=== PATIENT | female | born 1960 | race African-American/Black ===

== ENCOUNTER 2016-12-05 20:40 | Emergency (ER) | payer OTHER ==
[~2016-12-05] VITALS: Ht 162.6 cm; Wt 116.3 kg
[2016-12-05] MEDS ORDERED: CELE1CAP4 PO (20:59)
[2016-12-05] MEDS ORDERED: LISINOPRIL-HCTZ PO (20:59)
[2016-12-05] MEDS ORDERED: NISO20TA PO (20:59)
[2016-12-05] MEDS ORDERED: ASPI81TA18 PO (20:59)
[2016-12-05 21:36] LABS: BASO % 0.6 % (0.0-1.0); EOS # 0.2 K/mm3 (0.0-0.50); EOS % 1.9 % (0.0-3.0); LARGE UNSTAINED CELL # 0.2 K/mm3 (0.0-0.4); LARGE UNSTAINED CELL % 2.5 % (0.0-4.0); LYMPH # 2.9 K/mm3 (1.5-4.5); LYMPH % 34.8 % (24.0-44.0); MEAN CORPUSCULAR HEMOGLOBIN 28.4 pg (27.0-33.0); MEAN CORPUSCULAR HGB CONC 32.9 g/dl (32.0-36.5); MEAN CORPUSCULAR VOLUME 86.4 fl (80.0-96.0); MONO # 0.6 K/mm3 (0.0-0.8); MONO % 7.3 % (0.0-5.0); NEUTROPHILS # 4.1 K/mm3 (1.8-7.7); NEUTROPHILS % 52.8 % (36.0-66.0); PLATELET COUNT, AUTOMATED 304 k/mm3 (150-450); RED CELL DISTRIBUTION WIDTH 13.3 % (11.5-14.5); WHITE BLOOD COUNT 7.7 K/mm3 (4.0-10.0)
[2016-12-05 22:03] LABS: ANION GAP 6 MEQ/L (8-16); BLOOD UREA NITROGEN 13 MG/DL (7-18); CALCIUM LEVEL 9.4 MG/DL (8.5-10.1); CARBON DIOXIDE LEVEL 29 MEQ/L (21-32); CHLORIDE LEVEL 104 MEQ/L (98-107); CREATININE FOR GFR 0.99 MG/DL (0.55-1.02); GLOMERULAR FILTRATION RATE > 60.0 (>51); GLUCOSE, FASTING 131 MG/DL (70-105); POTASSIUM SERUM 3.9 MEQ/L (3.5-5.1); SODIUM LEVEL 139 MEQ/L (136-145)
[2016-12-06] MEDS ORDERED: METAL LOCK LOOP XX ONE (01:59)
[2016-12-06 03:28] VITALS: BP 143/74
--- NOTE | 2016-12-06 14:23 | REP ---
CHEST, TWO VIEWS: There is no evidence of acute infiltrate. No pleural effusion is seen. The heart is normal in size. The mediastinal silhouette is unremarkable. The visualized osseous structures are intact. IMPRESSION: No acute pulmonary disease. Signed by Reece Yu MD 12/06/2016 03:22 P
--- NOTE | 2016-12-06 20:05 | ECGEPIP ---
Stationary ECG Study [facility] - ED Test Date: 2016-12-06 Pat Name: JUVENAL DESIR Department: Room: - Gender: F Manager Analysis: barbara : 1960 Requested By: ANDREI White Order Number: [id number] Reading MD: Beronica Fox Measurements Intervals [place] Rate: 94 P: 23 OK: 172 QRS: -35 QRSD: 78 T: 16 QT: 287 QTc: 360 Interpretive Statements SINUS RHYTHM MARKED LEFT AXIS DEVIATION VOLTAGE CRITERIA FOR LVH NONSPECIFIC T-WAVE ABNORMALITY NO PRIOR FOR COMPARISON Electronically Signed On 12-06-2016 20:05:43 EDT by Beronica Fox
--- NOTE | 2016-12-08 07:56 | ECGEPIP ---
Stationary ECG Study [facility] - ED Test Date: 2016-12-05 Pat Name: JUVENLA DESIR Department: Room: - Gender: F Last Greaser: ChavarriaB: 1960 Requested By: ANDREI White Order Number: [id number] Reading MD: Gamal Orozco Measurements Intervals [place] Rate: 93 P: 32 AL: 169 QRS: -36 QRSD: 84 T: 19 QT: 366 QTc: 457 Interpretive Statements SINUS RHYTHM LEFT AXIS DEVIATION PATTERN CONSISTENT WITH PULMONARY DISEASE VOLTAGE CRITERIA FOR LVH NO PRIORS Electronically Signed On 12-08-2016 7:56:02 EDT by Gamal Orozco
== END 2016-12-06 03:40 | disposition home or self-care (01) ==
LOC: M ED 20:40
DX: R07.89 Other chest pain (principal); I10 Essential (primary) hypertension; M19.90 Unspecified osteoarthritis, unspecified site; F17.200 Nicotine dependence, unspecified, uncomplicated; Z85.41 Personal history of malignant neoplasm of cervix uteri; Z79.82 Long term (current) use of aspirin; Z79.1 Long term (current) use of non-steroidal anti-inflammatories (NSAID); Z79.899 Other long term (current) drug therapy

== ENCOUNTER → 2017-01-27 | Outpatient (CLI) | payer OTHER ==
[~2017-01-27] MED LIST: ASPI81TA18 PO; CELE1CAP4 PO; LISINOPRIL-HCTZ PO; NISO20TA PO
--- NOTE | 2017-01-27 08:49 | REPMRS ---
Patient History The patient states she had a clinical breast exam in June 2016. Patient is postmenopausal and has history of endometrial cancer at age 35. Family history of breast cancer in sister at age 51, unknown cancer in brother at age 49, and prostate cancer in maternal uncle at age 50 or over. Took hormonal contraceptives for 20 years. Digital Mammo Screening Bilat: January 27, 2017 - Exam #: [id number] Bilateral CC and MLO view(s) were taken. Technologist: Vicky Blackman, Technologist Prior study comparison: July 25, 2014, digital bilateral screening mammo, performed at [facility]. January 20, 2013, bilateral bilat screen digital mammo, performed at [facility] ([facility]). February 27, 2011, bilateral bilat screen digital mammo, performed at [facility] ([facility]). FINDINGS: There are scattered fibroglandular densities. There has been no change in the appearance of the mammogram from the prior studies. There is a mild amount of scattered fibroglandular density which is fairly symmetric. There is no interval development of dominant mass, architectural distortion, or clustered microcalcification suggestive of malignancy. ASSESSMENT: BI-RADS/ACR category 1 mammogram. Negative. Recommendation Routine screening mammogram in 1 year (for women over age 40). This mammogram was interpreted with the aid of an FDA-approved computer-aided dectection system. Electronically Signed By: Deondre Bradley MD 01/27/17 0849
== END ==
LOC: M RAD 07:59
PROVIDERS: ATTEND Physician Assistant Medical
DX: Z12.31 Encounter for screening mammogram for malignant neoplasm of breast (principal); Z78.0 Asymptomatic menopausal state; Z80.3 Family history of malignant neoplasm of breast; Z92.0 Personal history of contraception; Z80.49 Family history of malignant neoplasm of other genital organs

== ENCOUNTER → 2018-07-02 | Outpatient (CLI) | payer OTHER ==
[~2018-07-02] MED LIST changes: -ASPI81TA18 PO; +ASPI81TA52 PO
--- NOTE | 2018-07-02 11:32 | REP ---
RENAL ULTRASOUND WITH DUPLEX DOPPLER RENAL ARTERY EVALUATION: Real-time ultrasound evaluation of kidneys performed. Kidneys are normal in size and echotexture, right kidney measuring 11.5 x 4.5 x 5.4 cm, and left kidney 11.2 x 5.2 x 6.2 cm. There is no hydronephrosis or renal mass identified. Urinary bladder is mildly distended and grossly unremarkable. Real-time ultrasound evaluation and duplex Doppler interrogation of the renal arteries is performed bilaterally. Peak systolic velocity of the abdominal aorta at the level of the renal arteries is 112 cm/s. Peak systolic velocity of the main right renal artery is 137 cm/s, jtfyc-na-zxgycv ratio is 1.2. Resistive indices are measured in the upper, middle, and lower thirds of the right kidney and range between 0.65 and 0.87. Acceleration times range between 0.022 and 0.029. Main left renal artery cannot be seen proximally. Distally, peak systolic velocity near the renal hilum is 82.7 cm/s, mmvqx-by-smzwev ratio 0.7. Resistive indices of the left kidney range between 0.61 and 0.65. Acceleration times range between 0.022 and 0.029. Please note the study is limited due to respiratory motion. IMPRESSION: No gross evidence of hemodynamically significant stenosis of the renal arteries with duplex Doppler evaluation. However, there is limited evaluation of the proximal left renal artery. There are no secondary signs of renal artery stenosis on the left. If clinical suspicion persists, recommend CTA or MRA of the renal arteries. Electronically Signed by Reece Yu MD 07/02/2018 03:59 P
== END ==
LOC: M RAD 08:04
PROVIDERS: ATTEND Family Medicine
DX: I10 Essential (primary) hypertension (principal)

== ENCOUNTER 2019-04-20 09:27 | Emergency (ER) | payer OTHER ==
[~2019-04-20] VITALS: Ht 162.6 cm; Wt 118.6 kg
[2019-04-20] MEDS ORDERED: AMLO5TAB6 PO (09:32)
[2019-04-20] MEDS ORDERED: LISI40TA PO (09:34)
[2019-04-20] MEDS ORDERED: CHLO25TA PO (09:34)
--- NOTE | 2019-04-20 10:27 | REP ---
Clinical: Wheezing . Comparison: 12/05/2016 . Technique: PA and lateral. Findings: The mediastinum and cardiac silhouette are normal. The lung del real are clear and without acute consolidation, effusion, or pneumothorax. The skeletal structures are intact and normal. Impression: 1. No acute cardiopulmonary process. Electronically Signed by Rio Acosta MD 04/20/2019 10:18 A
[2019-04-20 10:31] LABS: MEAN CORPUSCULAR HGB CONC 31.7 g/dl (32.0-36.5); MEAN CORPUSCULAR VOLUME 85.2 fl (80.0-96.0); PLATELET COUNT, AUTOMATED 327 10^3/uL (150-450); RED BLOOD COUNT 4.81 10^6/uL (4.00-5.40); WHITE BLOOD COUNT 6.9 10^3/uL (4.0-10.0)
[2019-04-20] MEDS ORDERED: IPRATROPIUM 0.5MG/ALBUTEROL 2.5MG INH SOL UD 3ML (DUONEB)(J7620) NEB ONE (10:45)
[2019-04-20 10:58] LABS: CK-MB VALUE MASS 8.2 NG/ML (<3.6); CPK CREATINE PHOSPHOKINASE 453 U/L (26-192); FREE T4 1.25 NG/DL (0.76-1.46); MAGNESIUM LEVEL 1.7 MG/DL (1.8-2.4); MB/CK RELATIVE INDEX 1.81 (< OR =4); NT-PRO BNP 19 PG/ML (<125); THYROID STIMULATING HORMONE 0.656 uIU/ML (0.358-3.740); TROPONIN I < 0.02 NG/ML (< 0.10)
[2019-04-20 11:08] LABS: VITAMIN B12 LEVEL 522 PG/ML (247-911)
[2019-04-20] MEDS ORDERED: AFRI0.058 (11:18)
[2019-04-20] MEDS ORDERED: MUCI600T31 PO (11:18)
[2019-04-20] MEDS ORDERED: PROA1AER2 INH (11:18)
[2019-04-20 11:43] VITALS: BP 137/78
--- NOTE | 2019-04-20 15:43 | ECGEPIP ---
[facility] - ED Test Date: 2019-04-20 Pat Name: JUVENAL DESIR Department: Room: - Gender: Female Computer Specialist: [facility] : 1960 Requested By: RIVKA Baron PA-C Order Number: [id number] Reading MD: Beronica Fox Measurements Intervals [place] Rate: 91 P: 48 ID: 164 QRS: -26 QRSD: 82 T: 29 QT: 354 QTc: 437 Interpretive Statements SINUS RHYTHM BORDERLINE LEFT AXIS DEVIATION MODERATE VOLTAGE CRITERIA FOR LVH, CONSIDER NORMAL VARIANT NSTTW abnormalities SIMILAR 12/06/16 Electronically Signed on 04-20-2019 15:42:54 EST by Beronica Fox
== END 2019-04-20 11:46 | disposition home or self-care (01) ==
LOC: M ED 09:27
DX: J06.9 Acute upper respiratory infection, unspecified (principal); R20.2 Paresthesia of skin; I10 Essential (primary) hypertension; Z85.41 Personal history of malignant neoplasm of cervix uteri; F17.210 Nicotine dependence, cigarettes, uncomplicated; Z79.899 Other long term (current) drug therapy; Z79.82 Long term (current) use of aspirin

== ENCOUNTER → 2019-05-20 | Outpatient (CLI) | payer OTHER ==
[~2019-05-20] MED LIST changes: +AFRI0.058; +AMLO5TAB6 PO; +CHLO25TA PO; +LISI40TA PO; +MUCI600T31 PO; +PROA1AER2 INH
--- NOTE | 2019-05-20 14:10 | REPMRS ---
Patient History The patient states she has not had a clinical breast exam in over a year. Family history of breast cancer at age 51 in sister, prostate cancer at age 50 or over in maternal uncle, unknown cancer at age 49 in brother. Took hormonal contraceptives for 20 years. Digital Mammo Screening Bilat: May 20, 2019 - Exam #: [id number] Bilateral CC and MLO view(s) were taken. Technologist: Deborah Saldana, Technologist Prior study comparison: January 27, 2017, bilateral digital mammo screening bilat performed at [facility]. January 20, 2013, bilateral bilat screen digital mammo, performed at [facility] ([facility]). February 27, 2011, bilateral bilat screen digital mammo, performed at [facility] ([facility]). FINDINGS: There are scattered fibroglandular densities. There has been no change in the appearance of the mammogram from the prior studies. There is a mild amount of scattered fibroglandular density which is fairly symmetric. There is no interval development of dominant mass, architectural distortion, or grouped microcalcification suggestive of malignancy. Assessment: BI-RADS/ACR category 1 mammogram. Negative Mammogram. Recommendation Routine screening mammogram of both breasts in 1 year (for women over age 40). This patient's Lifetime Breast Cancer Risk is estimated at 16.8 %. This mammogram was interpreted with the aid of an FDA-approved computer-aided dectection system. Electronically Signed By: Deondre Bradley MD 05/20/19 3270
== END ==
LOC: M RAD 11:59
PROVIDERS: ATTEND Family Medicine
DX: Z12.31 Encounter for screening mammogram for malignant neoplasm of breast (principal)

== ENCOUNTER → 2020-06-04 | Outpatient (CLI) | payer OTHER ==
[~2020-06-04] MED LIST changes: +AMLO1TAB24 PO; -AMLO5TAB6 PO; -LISI40TA PO; +LISI40TA4 PO
== END ==
LOC: M LABSMTC 12:31
PROVIDERS: ATTEND Family Medicine
DX: Z20.822 Contact with and (suspected) exposure to COVID-19 (principal)

== ENCOUNTER → 2021-08-27 | Outpatient (CLI) | payer OTHER | LOC: M WHC 09:16 | PROVIDERS: ATTEND Family Medicine | DX: Z12.31 Encounter for screening mammogram for malignant neoplasm of breast (principal) ==

== ENCOUNTER → 2021-09-26 | Outpatient (CLI) | payer OTHER ==
[~2021-09-26] MED LIST changes: -AFRI0.058; +OXYM15SP2
== END ==
LOC: M SLEEP 20:00
PROVIDERS: ATTEND Physician Assistant
DX: G47.33 Obstructive sleep apnea (adult) (pediatric) (principal)

== ENCOUNTER → 2021-10-04 | Outpatient (CLI) | payer OTHER | LOC: M RAD 08:31 | PROVIDERS: ATTEND Physician Assistant | DX: F17.218 Nicotine dependence, cigarettes, with other nicotine-induced disorders (principal) ==

== ENCOUNTER → 2022-10-29 | Outpatient (CLI) | payer OTHER | LOC: M PLAIMG 10:31 | PROVIDERS: ATTEND Physician Assistant | DX: R91.8 Other nonspecific abnormal finding of lung field (principal) ==

== ENCOUNTER 2024-11-19 15:40 | Emergency (ER) | payer OTHER ==
[~2024-11-19] VITALS: Ht 162.6 cm; Wt 96.0 kg
[~2024-11-19 15:40] MED LIST changes: +LISI40TA10 PO; -LISI40TA4 PO
[2024-11-19 15:42] VITALS: BP 150/91; TEMP 98.3; O2SAT 96
== END 2024-11-19 17:26 | disposition home or self-care (01) ==
LOC: M ED 15:40
DX: S63.691A Other sprain of left index finger, initial encounter (principal); S63.693A Other sprain of left middle finger, initial encounter; S63.695A Other sprain of left ring finger, initial encounter; Y92.019 Unspecified place in single-family (private) house as the place of occurrence of the external cause; Y93.9 Activity, unspecified; Y99.9 Unspecified external cause status; I10 Essential (primary) hypertension; J45.909 Unspecified asthma, uncomplicated; F17.210 Nicotine dependence, cigarettes, uncomplicated; Z79.51 Long term (current) use of inhaled steroids; Z79.1 Long term (current) use of non-steroidal anti-inflammatories (NSAID); Z79.899 Other long term (current) drug therapy

== ENCOUNTER 2025-01-27 08:40 | Emergency (ER) | payer OTHER ==
[~2025-01-27] VITALS: Ht 162.6 cm; Wt 87.4 kg
[2025-01-27] MEDS ORDERED: SEMA1.7P SQ (09:22)
[2025-01-27 09:28] LABS: BASO # 0.0 10^3/uL (0.0-0.2); BASO % 0.3 % (0.0-1.0); EOS # 0.0 10^3/uL (0.0-0.5); EOS % 0.1 % (0.0-3.0); LYMPH # 2.6 10^3/uL (1.5-5.0); LYMPH % 36.3 % (24.0-44.0); MONO # 1.6 10^3/uL (0.0-0.8); MONO % 22.5 % (2.0-8.0); NEUTROPHILS # 2.9 10^3/uL (1.5-8.5); NEUTROPHILS % 40.5 % (36.0-66.0); PLATELET COUNT, AUTOMATED 251 10^3/uL (150-450)
[2025-01-27 09:46] LABS: CALCIUM LEVEL 9.5 MG/DL (8.3-10.6); CARBON DIOXIDE LEVEL 27.0 MMOL/L (20-31); CHLORIDE LEVEL 104.0 MMOL/L (98-107); CREATININE FOR GFR 0.98 MG/DL (0.55-1.30); GLOMERULAR FILTRATION RATE 64.5 (>45); POTASSIUM SERUM 4.0 MMOL/L (3.5-5.1); SODIUM LEVEL 142.0 MMOL/L (136-145)
[2025-01-27 10:16] VITALS: BP 147/85; TEMP 100; O2SAT 95
[2025-01-28] MEDS ORDERED: ATOR1TAB21 PO (18:54)
[2025-01-28] MEDS ORDERED: METF500T13 PO (18:54)
== END 2025-01-27 10:28 | disposition home or self-care (01) ==
LOC: M ED 09:30
DX: U07.1 COVID-19 (principal); R55 Syncope and collapse; I44.4 Left anterior fascicular block; E11.9 Type 2 diabetes mellitus without complications; I10 Essential (primary) hypertension; E78.5 Hyperlipidemia, unspecified

== ENCOUNTER 2025-01-28 18:45 | Observation (INO) | payer OTHER ==
[~2025-01-28] VITALS: Ht 162.6 cm; Wt 88.0 kg
[~2025-01-28 18:45] MED LIST changes: +SEMA1.7P SQ
[2025-01-28] MEDS ORDERED: ATOR1TAB21 PO (18:54)
[2025-01-28] MEDS ORDERED: METF500T13 PO (18:54)
[2025-01-28 20:37] LABS: BASO # 0.0 10^3/uL (0.0-0.2); BASO % 0.6 % (0.0-1.0); EOS # 0.0 10^3/uL (0.0-0.5); EOS % 0.4 % (0.0-3.0); LYMPH # 2.4 10^3/uL (1.5-5.0); LYMPH % 48.6 % (24.0-44.0); MONO # 0.7 10^3/uL (0.0-0.8); MONO % 15.0 % (2.0-8.0); NEUTROPHILS # 1.7 10^3/uL (1.5-8.5); NEUTROPHILS % 35.2 % (36.0-66.0); PLATELET COUNT, AUTOMATED 270 10^3/uL (150-450)
[2025-01-28 21:01] LABS: CK-MB VALUE MASS < 1.0 NG/ML (<3.6)
[2025-01-28 21:03] LABS: CPK CREATINE PHOSPHOKINASE 103 U/L (34-145)
[2025-01-28 21:04] LABS: CALCIUM LEVEL 9.3 MG/DL (8.3-10.6); CARBON DIOXIDE LEVEL 29 MMOL/L (20-31); CHLORIDE LEVEL 102 MMOL/L (98-107); CREATININE FOR GFR 0.98 MG/DL (0.55-1.30); GLOMERULAR FILTRATION RATE 64.5 (>45); MAGNESIUM LEVEL 1.6 MG/DL (1.8-2.4); POTASSIUM SERUM 3.4 MMOL/L (3.5-5.1); SODIUM LEVEL 136 MMOL/L (136-145)
[2025-01-28 21:06] LABS: FREE T4 1.57 NG/DL (0.89-1.76)
[2025-01-28 22:36] LABS: CK-MB VALUE MASS < 1.0 NG/ML (<3.6)
[2025-01-28 22:47] LABS: CPK CREATINE PHOSPHOKINASE 103 U/L (34-145)
[2025-01-29] MEDS: POTASSIUM CHLORIDE 10MEQ SR TABLET PO ONE
[2025-01-29] MEDS: MAG SULF 1GM/100ML (MAG RUN) 1 GM in IV 1 EA IV ONE
[2025-01-29] MEDS: NS (Normal Saline) 0.9% 1,000 ML IV SCH (01:27)
[2025-01-29 02:09] VITALS: BP 163/68; TEMP 98.4; O2SAT 98
[2025-01-29 06:00] VITALS: BP 115/67; TEMP 97.8; O2SAT 98
[2025-01-29] MEDS ORDERED: DOCU100C16 PO (07:01)
[2025-01-29 07:25] VITALS: BP_SYST 111; BP_SYST 115; BP_SYST 121; BP_DIAS 62; BP_DIAS 70; BP_DIAS 78
[2025-01-29] MEDS ORDERED: AMLO1TAB25 PO (09:52)
[2025-01-29] MEDS ORDERED: ASPI81CH48 PO (09:52)
[2025-01-29] MEDS ORDERED: HOME MED LIST COMPLETE! XX SCH (09:55)
[2025-01-29 11:02] LABS: BASO # 0.0 10^3/uL (0.0-0.2); BASO % 0.5 % (0.0-1.0); EOS # 0.0 10^3/uL (0.0-0.5); EOS % 0.3 % (0.0-3.0); LYMPH # 2.1 10^3/uL (1.5-5.0); LYMPH % 54.2 % (24.0-44.0); MONO # 0.6 10^3/uL (0.0-0.8); MONO % 16.1 % (2.0-8.0); NEUTROPHILS # 1.1 10^3/uL (1.5-8.5); NEUTROPHILS % 28.9 % (36.0-66.0); PLATELET COUNT, AUTOMATED 264 10^3/uL (150-450)
[2025-01-29 11:18] LABS: CALCIUM LEVEL 8.7 MG/DL (8.3-10.6); CARBON DIOXIDE LEVEL 29.0 MMOL/L (20-31); CHLORIDE LEVEL 103.0 MMOL/L (98-107); CREATININE FOR GFR 0.8 MG/DL (0.55-1.30); GLOMERULAR FILTRATION RATE 82.2 (>45); MAGNESIUM LEVEL 1.8 MG/DL (1.8-2.4); POTASSIUM SERUM 3.7 MMOL/L (3.5-5.1); SODIUM LEVEL 143.0 MMOL/L (136-145)
[2025-01-29 12:00] VITALS: BP 119/73; TEMP 96.9; O2SAT 99
[2025-01-29] MEDS ORDERED: LISI20TA33 PO (12:15)
== END 2025-01-29 12:40 | disposition home or self-care (01) ==
LOC: M ED 18:45 → M ED INP 18:46 → UNDOADMOB 23:36 → INTOOBSV 23:36 → M ED INP 23:36 → M MS4PR 01-29 02:09 → M ED INP 01-29 02:09 → M MS4PR 01-29 02:09 → UNDODISIN 01-29 12:40
PROVIDERS: ADMIT Internal Medicine Nephrology; ATTEND Internal Medicine Nephrology
DX: I95.89 Other hypotension (principal); U07.1 COVID-19; R55 Syncope and collapse; I10 Essential (primary) hypertension; E11.9 Type 2 diabetes mellitus without complications; E78.5 Hyperlipidemia, unspecified; F17.200 Nicotine dependence, unspecified, uncomplicated; E83.42 Hypomagnesemia; E87.6 Hypokalemia; Z79.82 Long term (current) use of aspirin; Z79.899 Other long term (current) drug therapy
CPT/HCPCS: 36415; 71045; 80048; 82550; 82553; 83735; 84439; 84443; 84484; 85025; 93005; 93041; 94760; 96365; 99285; J3475